=== PATIENT | male | born 1995 | race African-American/Black ===

== ENCOUNTER 2021-02-22 07:26 | Inpatient (IN) | payer MEDICAID ==
[~2021-02-22] VITALS: Ht 172.7 cm; Wt 58.5 kg
[2021-02-22 10:02] LABS: COVID AG,FIA SOURCE NASOPHARYNGEAL
[2021-02-22] MEDS ORDERED: HALOPERIDOL 5 MG TABLET PO ONE (10:15)
[2021-02-22] MEDS ORDERED: LORazepam 2 MG/ML VIAL IM ONE (10:15)
[2021-02-22] MEDS ORDERED: LORazepam 2 MG TABLET PO ONE (10:15)
[2021-02-22] MEDS ORDERED: HALOPERIDOL LACTATE 5 MG/ML VIAL IM ONE (10:15)
[2021-02-22] MEDS ORDERED: INFLUENZA VIRUS VACCINE QVS 2021-22 (6MO+)/PF 60 MCG/0.5 ML SYRINGE IM. ONE (12:45)
[2021-02-22 13:16] VITALS: BP 129/83
[2021-02-22] MEDS: RisperiDONE 1 MG TABLET PO SCH (17:00)
[2021-02-23 08:00] VITALS: BP 121/83
[2021-02-23] MEDS ORDERED: ONDANSETRON HCL 4 MG TABLET PO PRN (08:00)
[2021-02-23] MEDS ORDERED: LOPERAMIDE HCL 2 MG CAPSULE PO PRN (08:00)
[2021-02-23] MEDS ORDERED: PETROLATUM,WHITE 28 GM JELLY TP PRN (08:00)
[2021-02-23] MEDS ORDERED: ALBUTEROL SULFATE HFA 90 MCG/PUFF 8 GM INHALER IH PRN (08:00)
[2021-02-23] MEDS ORDERED: OMEPRAZOLE 20 MG CAPSULE PO PRN (08:00)
[2021-02-23] MEDS ORDERED: BENZOCAINE/MENTHOL LOZENGE PO PRN (08:00)
[2021-02-23] MEDS ORDERED: MAG HYDROX/AL HYDROX/SIMETH ES 30 ML SUSPENSION UDCUP PO PRN (08:00)
[2021-02-23] MEDS ORDERED: BACITRACIN 28 GM OINTMENT TP PRN (08:00)
[2021-02-23] MEDS ORDERED: MAGNESIUM HYDROXIDE SUSPENSION 30 ML UDCUP PO PRN (08:00)
[2021-02-23] MEDS ORDERED: IBUPROFEN 600 MG TABLET PO PRN (08:00)
[2021-02-23] MEDS ORDERED: DOCUSATE SODIUM 100 MG CAPSULE PO PRN (08:00)
[2021-02-23] MEDS ORDERED: CloNIDine HCL 0.1 MG TABLET PO PRN (08:00)
[2021-02-23] MEDS ORDERED: ACETAMINOPHEN 325 MG TABLET PO PRN (08:00)
[2021-02-23] MEDS: RisperiDONE 1 MG TABLET PO SCH (08:14)
[2021-02-23] MEDS: LORazepam 2 MG TABLET PO PRN (08:47)
[2021-02-23] MEDS: HALOPERIDOL 5 MG TABLET PO PRN (08:48)
[2021-02-23] MEDS: RisperiDONE 3 MG TABLET PO SCH (16:39)
[2021-02-23 18:55] VITALS: BP 109/56
[2021-02-24 08:28] VITALS: BP 109/76
[2021-02-24] MEDS: RisperiDONE 3 MG TABLET PO SCH ×3 (09:00→17:00)
[2021-02-24] MEDS: HALOPERIDOL 5 MG TABLET PO PRN (16:59)
[2021-02-25 08:00] VITALS: BP 119/75
[2021-02-25] MEDS: RisperiDONE 3 MG TABLET PO SCH ×2 (08:02→08:36)
[2021-02-25] MEDS: THIAMINE 100 MG TABLET PO SCH (08:37)
[2021-02-25] MEDS: MULTIVITAMINS WITH MINERALS, THERAPEUTIC TABLET PO SCH (08:37)
[2021-02-26] MEDS: RisperiDONE 3 MG TABLET PO SCH ×2 (08:14→17:00)
[2021-02-26] MEDS: MULTIVITAMINS WITH MINERALS, THERAPEUTIC TABLET PO SCH (08:14)
[2021-02-26] MEDS: THIAMINE 100 MG TABLET PO SCH (08:14)
[2021-02-26 08:25] VITALS: BP 130/84
[2021-02-26] MEDS: ZOLPIDEM TARTRATE 10 MG TABLET PO PRN (21:18)
[2021-02-27] MEDS: RisperiDONE 3 MG TABLET PO SCH ×2 (08:10→16:25)
[2021-02-27] MEDS: THIAMINE 100 MG TABLET PO SCH (08:10)
[2021-02-27] MEDS: MULTIVITAMINS WITH MINERALS, THERAPEUTIC TABLET PO SCH (08:10)
[2021-02-27 08:29] VITALS: BP 112/76
[2021-02-27] MEDS: LORazepam 2 MG TABLET PO PRN (08:53)
[2021-02-27 16:23] VITALS: BP 109/70
[2021-02-27] MEDS: ZOLPIDEM TARTRATE 10 MG TABLET PO PRN (20:10)
[2021-02-28] MEDS: LORazepam 2 MG TABLET PO PRN (08:27)
[2021-02-28] MEDS: RisperiDONE 3 MG TABLET PO SCH ×2 (08:27→16:18)
[2021-02-28] MEDS: THIAMINE 100 MG TABLET PO SCH (08:27)
[2021-02-28] MEDS: MULTIVITAMINS WITH MINERALS, THERAPEUTIC TABLET PO SCH (08:27)
[2021-02-28 09:26] VITALS: BP 121/66
[2021-02-28 16:23] VITALS: BP 129/76
[2021-02-28] MEDS: ZOLPIDEM TARTRATE 10 MG TABLET PO PRN (20:16)
[2021-03-01 09:06] VITALS: BP 129/77
[2021-03-01] MEDS: THIAMINE 100 MG TABLET PO SCH (10:16)
[2021-03-01] MEDS: MULTIVITAMINS WITH MINERALS, THERAPEUTIC TABLET PO SCH (10:16)
[2021-03-01] MEDS: RisperiDONE 3 MG TABLET PO SCH ×2 (10:16→17:39)
[2021-03-02 07:57] LABS: COVID AG,FIA SOURCE NASAL SWAB
[2021-03-02 09:49] VITALS: BP 125/76
[2021-03-02 09:50] VITALS: BP 125/76
[2021-03-02] MEDS: THIAMINE 100 MG TABLET PO SCH (09:56)
[2021-03-02] MEDS: RisperiDONE 3 MG TABLET PO SCH ×2 (09:56→16:07)
[2021-03-02] MEDS: MULTIVITAMINS WITH MINERALS, THERAPEUTIC TABLET PO SCH (09:57)
[2021-03-02 16:00] VITALS: BP 120/72
[2021-03-02] MEDS: HALOPERIDOL 5 MG TABLET PO PRN (16:07)
[2021-03-03] MEDS: THIAMINE 100 MG TABLET PO SCH (08:00)
[2021-03-03] MEDS: MULTIVITAMINS WITH MINERALS, THERAPEUTIC TABLET PO SCH (08:00)
[2021-03-03] MEDS: RisperiDONE 3 MG TABLET PO SCH (08:00)
[2021-03-03 08:41] VITALS: BP 131/83
[2021-03-03] MEDS ORDERED: RISP3TAB44 PO (10:36)
== END 2021-03-03 13:15 | disposition home or self-care (01) | DRG 885 ==
LOC: EMS 07:29 → 3EC 11:29
PROVIDERS: ADMIT Psychiatry & Neurology Psychiatry; ATTEND Psychiatry & Neurology Psychiatry
DX: F20.9 Schizophrenia, unspecified (principal); F31.9 Bipolar disorder, unspecified; F41.9 Anxiety disorder, unspecified; G47.00 Insomnia, unspecified; K59.00 Constipation, unspecified; Z53.20 Procedure and treatment not carried out because of patient's decision for unspecified reasons; Z20.822 Contact with and (suspected) exposure to COVID-19; F17.200 Nicotine dependence, unspecified, uncomplicated; Z71.6 Tobacco abuse counseling; Z28.21 Immunization not carried out because of patient refusal; Z72.89 Other problems related to lifestyle
CPT/HCPCS: 99285

== ENCOUNTER 2021-03-04 18:21 | Emergency (ER) | payer MEDICAID ==
[~2021-03-04] VITALS: Ht 180.3 cm; Wt 59.1 kg
[~2021-03-04 18:21] MED LIST: RISP3TAB44 PO
[2021-03-04 19:09] LABS: BASOPHILS % (AUTO) 0.2 % (0.0-2.0); EOSINOPHILS % (AUTO) 0.6 % (1.0-6.0); HEMATOCRIT 34.4 % (41-53); HEMOGLOBIN 11.3 g/dL (13.5-17.5); LYMPHOCYTES # (AUTO) 1.4 K/uL (1.0-4.8); LYMPHOCYTES % (AUTO) 11.3 % (22.0-44.0); MEAN CORPUSCULAR HEMOGLOBIN 28.8 pg (26.0-34.0); MEAN CORPUSCULAR HGB CONC 32.9 G/dL (31.0-37.0); MEAN CORPUSCULAR VOLUME 88 fL (80-100); MONOCYTES # (AUTO) 1.2 K/uL (0.1-1.0); MONOCYTES % (AUTO) 9.1 % (2.0-9.0); NEUTROPHILS % (AUTO) 78.8 % (40.0-70.0); PLATELET COUNT (AUTO) 337 K/uL (150-450); RED BLOOD CELL COUNT(AUTO) 3.93 MIL/uL (4.50-5.90); RED CELL DISTRIBUTION WIDTH 14.5 % (11.5-14.5)
[2021-03-04 19:17] LABS: ANION GAP 4 mmol/L (8-16); CALCIUM, TOTAL 8.7 mg/dL (8.8-10.5); CARBON DIOXIDE 31 mmol/L (22-29); CHLORIDE 106 mmol/L (98-107); CREATININE 0.69 mg/dL (0.60-1.30); GLOMERULAR FILTR. RATE CALC > 60 mL/min (>60); GLUCOSE,RANDOM 82 mg/dL (70-110); POTASSIUM 4.1 mmol/L (3.5-5.1); SODIUM SERUM 141 mmol/L (136-145); UREA NITROGEN, BLOOD 13 mg/dL (7-18)
[2021-03-04 19:22] LABS: ALANINE AMINOTRANSFERASE 29 U/L (12-78); ALBUMIN 3.6 g/dL (3.4-5.0); ALKALINE PHOSPHATASE 56 U/L (46-116); ASPARTATE AMINOTRANSFERASE 13 U/L (15-37); BILIRUBIN,TOTAL 0.2 mg/dL (0.1-1.0); LIPASE 83 U/L (73-393); TOTAL PROTEIN, SERUM 6.7 g/dL (6.4-8.2)
[2021-03-04 20:32] LABS: APPEARANCE,URINE CLEAR (CLEAR); BILIRUBIN,URINE NEGATIVE (NEGATIVE); GLUCOSE, URINE (UA) NEGATIVE (NEGATIVE); KETONES,URINE NEGATIVE (NEGATIVE); LEUKOCYTE ESTERASE ,URINE SMALL (NEGATIVE); NITRATE,URINE NEGATIVE (NEGATIVE); OCCULT BLOOD,URINE NEGATIVE (NEGATIVE); PROTEIN,URINE NEGATIVE (NEGATIVE); UROBILINOGEN,URINE 0.2 mg/dL (<=1.0)
[2021-03-04 21:01] LABS: BACTERIA,URINE Many /HPF (None Seen); RBC,URINE 0-2 /HPF (0-2); WBC,URINE 26-50 /HPF (0-5)
[2021-03-04] MEDS ORDERED: MetroNIDAZOLE 250 MG TABLET PO ONE (21:15)
[2021-03-04] MEDS ORDERED: CEPHALEXIN MONOHYDRATE 500 MG CAPSULE PO ONE (21:15)
[2021-03-04 22:17] LABS: AMPHET/METH SCREEN,URINE NEGATIVE (NEGATIVE); BARBITURATE SCREEN, URINE NEGATIVE (NEGATIVE); BENZODIAZEPINES SCREEN,URINE NEGATIVE (NEGATIVE); CANNABINOID SCREEN,URINE POSITIVE (NEGATIVE); COCAINE SCREEN,URINE NEGATIVE (NEGATIVE); METHADONE SCREEN, URINE NEGATIVE (NEGATIVE); OPIATE SCREEN,URINE NEGATIVE (NEGATIVE); PHENCYCLIDINE SCREEN,URINE NEGATIVE (NEGATIVE)
[2021-03-04 22:21] LABS: COVID AG,FIA SOURCE NASOPHARYNGEAL
[2021-03-05 11:30] VITALS: BP 118/72
== END 2021-03-05 12:10 | disposition home or self-care (01) ==
LOC: EMS 18:26
DX: N39.0 Urinary tract infection, site not specified (principal); F12.90 Cannabis use, unspecified, uncomplicated; F17.210 Nicotine dependence, cigarettes, uncomplicated; F31.9 Bipolar disorder, unspecified; Z20.822 Contact with and (suspected) exposure to COVID-19
CPT/HCPCS: 36415; 80053; 80307; 81001; 83690; 85025; 87077; 87086; 87186; 87426; 99285; G0480

== ENCOUNTER 2021-03-05 18:00 | Inpatient (IN) | payer MEDICAID ==
[~2021-03-05] VITALS: Ht 172.7 cm; Wt 59.8 kg
[2021-03-05 18:38] LABS: BASOPHILS % (AUTO) 0.3 % (0.0-2.0); EOSINOPHILS % (AUTO) 0.9 % (1.0-6.0); HEMATOCRIT 35.6 % (41-53); HEMOGLOBIN 11.5 g/dL (13.5-17.5); LYMPHOCYTES # (AUTO) 2.2 K/uL (1.0-4.8); MEAN CORPUSCULAR HEMOGLOBIN 28.6 pg (26.0-34.0); MEAN CORPUSCULAR HGB CONC 32.4 G/dL (31.0-37.0); MEAN CORPUSCULAR VOLUME 88 fL (80-100); MONOCYTES # (AUTO) 0.9 K/uL (0.1-1.0); MONOCYTES % (AUTO) 7.8 % (2.0-9.0); NEUTROPHILS # (AUTO) 8.9 K/uL (1.8-7.7); PLATELET COUNT (AUTO) 356 K/uL (150-450); RED BLOOD CELL COUNT(AUTO) 4.03 MIL/uL (4.50-5.90); RED CELL DISTRIBUTION WIDTH 14.5 % (11.5-14.5)
[2021-03-05 18:39] LABS: COVID AG,FIA SOURCE NASOPHARYNGEAL
[2021-03-05 18:57] LABS: ANION GAP 6 mmol/L (8-16); CALCIUM, TOTAL 9.1 mg/dL (8.8-10.5); CARBON DIOXIDE 33 mmol/L (22-29); CHLORIDE 105 mmol/L (98-107); GLOMERULAR FILTR. RATE CALC > 60 mL/min (>60); GLUCOSE,RANDOM 100 mg/dL (70-110); SODIUM SERUM 144 mmol/L (136-145); UREA NITROGEN, BLOOD 15 mg/dL (7-18)
[2021-03-05 19:12] LABS: ALANINE AMINOTRANSFERASE 36 U/L (12-78); ALBUMIN 3.9 g/dL (3.4-5.0); ALKALINE PHOSPHATASE 60 U/L (46-116); ASPARTATE AMINOTRANSFERASE 18 U/L (15-37); BILIRUBIN,TOTAL 0.1 mg/dL (0.1-1.0)
[2021-03-06] MEDS ORDERED: INFLUENZA VIRUS VACCINE QVS 2021-22 (6MO+)/PF 60 MCG/0.5 ML SYRINGE IM. ONE (01:15)
[2021-03-06 03:32] VITALS: BP 115/65
[2021-03-06 08:23] LABS: CHOL/HDL RATIO 1.9 (4.2-7.3)
[2021-03-06] MEDS ORDERED: ONDANSETRON HCL 4 MG TABLET PO PRN (08:45)
[2021-03-06] MEDS ORDERED: ACETAMINOPHEN 325 MG TABLET PO PRN (08:45)
[2021-03-06] MEDS ORDERED: CloNIDine HCL 0.1 MG TABLET PO PRN (08:45)
[2021-03-06] MEDS ORDERED: LOPERAMIDE HCL 2 MG CAPSULE PO PRN (08:45)
[2021-03-06] MEDS ORDERED: OMEPRAZOLE 20 MG CAPSULE PO PRN (08:45)
[2021-03-06] MEDS ORDERED: MAG HYDROX/AL HYDROX/SIMETH ES 30 ML SUSPENSION UDCUP PO PRN (08:45)
[2021-03-06] MEDS ORDERED: DOCUSATE SODIUM 100 MG CAPSULE PO PRN (08:45)
[2021-03-06] MEDS ORDERED: MAGNESIUM HYDROXIDE SUSPENSION 30 ML UDCUP PO PRN (08:45)
[2021-03-06] MEDS ORDERED: BENZOCAINE/MENTHOL LOZENGE PO PRN (08:45)
[2021-03-06] MEDS ORDERED: ALBUTEROL SULFATE HFA 90 MCG/PUFF 8 GM INHALER IH PRN (08:45)
[2021-03-06] MEDS ORDERED: PETROLATUM,WHITE 28 GM JELLY TP PRN (08:45)
[2021-03-06] MEDS ORDERED: BACITRACIN 28 GM OINTMENT TP PRN (08:45)
[2021-03-06] MEDS ORDERED: IBUPROFEN 600 MG TABLET PO PRN (08:45)
[2021-03-06 08:54] VITALS: BP 118/70
[2021-03-06 16:09] VITALS: BP 133/79
[2021-03-06] MEDS: RisperiDONE 3 MG TABLET PO SCH ×3 (16:57→17:16)
[2021-03-06] MEDS: LORazepam 2 MG TABLET PO PRN (17:48)
[2021-03-06] MEDS: HALOPERIDOL 5 MG TABLET PO PRN (17:48)
[2021-03-07 00:29] VITALS: BP 106/60
[2021-03-07 08:15] VITALS: BP 121/73
[2021-03-07 08:33] LABS: BASOPHILS % (AUTO) 0.3 % (0.0-2.0); EOSINOPHILS % (AUTO) 0.8 % (1.0-6.0); HEMATOCRIT 36.2 % (41-53); HEMOGLOBIN 11.9 g/dL (13.5-17.5); LYMPHOCYTES # (AUTO) 2.1 K/uL (1.0-4.8); LYMPHOCYTES % (AUTO) 14.3 % (22.0-44.0); MEAN CORPUSCULAR VOLUME 88 fL (80-100); MONOCYTES # (AUTO) 1.3 K/uL (0.1-1.0); MONOCYTES % (AUTO) 8.7 % (2.0-9.0); NEUTROPHILS # (AUTO) 10.9 K/uL (1.8-7.7); NEUTROPHILS % (AUTO) 75.9 % (40.0-70.0); PLATELET COUNT (AUTO) 370 K/uL (150-450); RED BLOOD CELL COUNT(AUTO) 4.11 MIL/uL (4.50-5.90); RED CELL DISTRIBUTION WIDTH 14.8 % (11.5-14.5)
[2021-03-07 08:57] LABS: ALANINE AMINOTRANSFERASE 48 U/L (12-78); ALBUMIN 3.8 g/dL (3.4-5.0); ALKALINE PHOSPHATASE 55 U/L (46-116); ANION GAP 5 mmol/L (8-16); ASPARTATE AMINOTRANSFERASE 23 U/L (15-37); BILIRUBIN,TOTAL 0.3 mg/dL (0.1-1.0); CALCIUM, TOTAL 9.3 mg/dL (8.8-10.5); CARBON DIOXIDE 29 mmol/L (22-29); CHLORIDE 104 mmol/L (98-107); CREATININE 0.76 mg/dL (0.60-1.30); GLOMERULAR FILTR. RATE CALC > 60 mL/min (>60); GLUCOSE,RANDOM 105 mg/dL (70-110); POTASSIUM 3.9 mmol/L (3.5-5.1); SODIUM SERUM 138 mmol/L (136-145); TOTAL PROTEIN, SERUM 7.1 g/dL (6.4-8.2); UREA NITROGEN, BLOOD 14 mg/dL (7-18)
[2021-03-07 11:20] LABS: AMPHET/METH SCREEN,URINE NEGATIVE (NEGATIVE); BARBITURATE SCREEN, URINE NEGATIVE (NEGATIVE); BENZODIAZEPINES SCREEN,URINE NEGATIVE (NEGATIVE); CANNABINOID SCREEN,URINE POSITIVE (NEGATIVE); COCAINE SCREEN,URINE NEGATIVE (NEGATIVE); METHADONE SCREEN, URINE NEGATIVE (NEGATIVE); OPIATE SCREEN,URINE NEGATIVE (NEGATIVE)
[2021-03-07 11:23] LABS: PHENCYCLIDINE SCREEN,URINE NEGATIVE (NEGATIVE)
[2021-03-07] MEDS: LORazepam 2 MG TABLET PO PRN (15:35)
[2021-03-07] MEDS: HALOPERIDOL 5 MG TABLET PO PRN (15:35)
[2021-03-07 16:07] VITALS: BP 140/84
[2021-03-07] MEDS: RisperiDONE 3 MG TABLET PO SCH (16:16)
[2021-03-08] MEDS: LORazepam 2 MG TABLET PO PRN ×2 (00:13→09:22)
[2021-03-08] MEDS: ZOLPIDEM TARTRATE 10 MG TABLET PO PRN (00:13)
[2021-03-08 04:12] VITALS: BP 130/76
[2021-03-08 08:20] VITALS: BP 121/69
[2021-03-08] MEDS: RisperiDONE 3 MG TABLET PO SCH ×2 (09:00→16:20)
[2021-03-08] MEDS: HALOPERIDOL 5 MG TABLET PO PRN (09:22)
[2021-03-08 16:08] VITALS: BP 128/72
[2021-03-09 00:21] VITALS: BP 121/68
[2021-03-09] MEDS: ZOLPIDEM TARTRATE 10 MG TABLET PO PRN (00:47)
[2021-03-09] MEDS: LORazepam 2 MG TABLET PO PRN ×2 (00:47→08:35)
[2021-03-09 08:15] VITALS: BP 131/81
[2021-03-09] MEDS: HALOPERIDOL 5 MG TABLET PO PRN (08:35)
[2021-03-09] MEDS: RisperiDONE 3 MG TABLET PO SCH ×2 (08:35→16:47)
[2021-03-09 16:09] VITALS: BP 115/78
[2021-03-10 01:27] VITALS: BP 123/78
[2021-03-10] MEDS: RisperiDONE 3 MG TABLET PO SCH ×2 (08:21→16:49)
[2021-03-10] MEDS: HALOPERIDOL 5 MG TABLET PO PRN ×2 (08:36→16:49)
[2021-03-10] MEDS: LORazepam 2 MG TABLET PO PRN ×2 (08:36→16:49)
[2021-03-10 08:37] VITALS: BP 136/88
[2021-03-10 16:06] VITALS: BP 114/70
[2021-03-11 01:35] VITALS: BP 111/72
[2021-03-11] MEDS: HALOPERIDOL 5 MG TABLET PO PRN (05:13)
[2021-03-11] MEDS: LORazepam 2 MG TABLET PO PRN ×2 (05:13→16:28)
[2021-03-11] MEDS: RisperiDONE 3 MG TABLET PO SCH ×2 (09:00→16:28)
[2021-03-11 14:36] VITALS: BP 113/74
[2021-03-11 17:24] VITALS: BP 125/83
[2021-03-11] MEDS: ZOLPIDEM TARTRATE 10 MG TABLET PO PRN (20:11)
[2021-03-12 04:03] VITALS: BP 122/70
[2021-03-12 08:14] VITALS: BP 112/69
[2021-03-12] MEDS: RisperiDONE 3 MG TABLET PO SCH ×2 (09:14→17:44)
[2021-03-12 16:10] VITALS: BP 121/81
[2021-03-13 05:23] VITALS: BP 114/68
[2021-03-13] MEDS: RisperiDONE 3 MG TABLET PO SCH ×2 (08:17→16:03)
[2021-03-13 09:31] VITALS: BP 110/64
[2021-03-13 10:09] LABS: GLUCOMETER DEV NAME(LOC) POC.BV
[2021-03-13 16:09] VITALS: BP 122/77
[2021-03-13] MEDS: LORazepam 2 MG TABLET PO PRN ×2 (16:12→20:13)
[2021-03-13] MEDS: ZOLPIDEM TARTRATE 10 MG TABLET PO PRN (20:37)
[2021-03-14 08:29] VITALS: BP 140/87
[2021-03-14] MEDS: RisperiDONE 3 MG TABLET PO SCH ×2 (08:35→16:55)
[2021-03-14] MEDS: HALOPERIDOL 5 MG TABLET PO PRN (09:02)
[2021-03-14 16:12] VITALS: BP 122/72
[2021-03-15 05:14] VITALS: BP 131/83
[2021-03-15] MEDS: RisperiDONE 3 MG TABLET PO SCH ×2 (09:09→17:09)
[2021-03-15 09:40] VITALS: BP 116/72
[2021-03-15 16:14] VITALS: BP 120/70
[2021-03-16] MEDS: RisperiDONE 3 MG TABLET PO SCH ×2 (08:08→16:36)
[2021-03-16 08:51] VITALS: BP 119/72
[2021-03-16 16:18] VITALS: BP 125/72
[2021-03-17] MEDS: RisperiDONE 3 MG TABLET PO SCH ×2 (08:38→17:08)
[2021-03-17 08:53] VITALS: BP 116/70
[2021-03-17 16:14] VITALS: BP 132/79
[2021-03-18 00:15] VITALS: BP 119/73
[2021-03-18] MEDS: RisperiDONE 3 MG TABLET PO SCH ×2 (08:13→16:17)
[2021-03-18 09:55] VITALS: BP 139/83
[2021-03-18 16:09] VITALS: BP 128/60
[2021-03-18] MEDS ORDERED: TUBERCULIN, PURIFIED PROTEIN DERIVATIVE 5 TU/0.1 ML SYRINGE ID ONE (16:15)
[2021-03-19 05:41] VITALS: BP 114/71
[2021-03-19 07:09] LABS: BAND NEUTROPHILS % (MANUAL) 0 % (0-5)
[2021-03-19 07:14] LABS: HEMATOCRIT 36.2 % (41-53); HEMOGLOBIN 12.3 g/dL (13.5-17.5); MEAN CORPUSCULAR HEMOGLOBIN 29.5 pg (26.0-34.0); MEAN CORPUSCULAR HGB CONC 33.9 G/dL (31.0-37.0); MEAN CORPUSCULAR VOLUME 87 fL (80-100); PLATELET COUNT (AUTO) 326 K/uL (150-450); RED BLOOD CELL COUNT(AUTO) 4.17 MIL/uL (4.50-5.90); RED CELL DISTRIBUTION WIDTH 14.6 % (11.5-14.5)
[2021-03-19 07:23] LABS: ANION GAP 7 mmol/L (8-16); CARBON DIOXIDE 29 mmol/L (22-29); CHLORIDE 106 mmol/L (98-107); CREATININE 0.91 mg/dL (0.60-1.30); GLOMERULAR FILTR. RATE CALC > 60 mL/min (>60); GLUCOSE,RANDOM 127 mg/dL (70-110); PHOSPHORUS 3.3 mg/dL (2.5-4.9); SODIUM SERUM 142 mmol/L (136-145); UREA NITROGEN, BLOOD 10 mg/dL (7-18)
[2021-03-19 08:32] VITALS: BP 124/73
[2021-03-19 08:32] LABS: LYMPHOCYTES % (MANUAL) 19 % (22-44); MONOCYTES % (MANUAL) 2 % (2-9); SEGMENTED NEUTROPHILS % 79 % (40-70)
[2021-03-19] MEDS: RisperiDONE 3 MG TABLET PO SCH ×2 (09:10→17:00)
[2021-03-19 16:10] VITALS: BP 128/83
[2021-03-19] MEDS: MAGNESIUM OXIDE 400 MG TABLET PO SCH (17:00)
[2021-03-20 04:17] VITALS: BP 129/76
[2021-03-20] MEDS: RisperiDONE 3 MG TABLET PO SCH ×2 (08:06→16:54)
[2021-03-20] MEDS: MAGNESIUM OXIDE 400 MG TABLET PO SCH ×2 (08:11→16:54)
[2021-03-20 08:41] VITALS: BP 142/85
[2021-03-20 16:10] VITALS: BP 127/78
[2021-03-21 06:08] VITALS: BP 114/72
[2021-03-21] MEDS: RisperiDONE 3 MG TABLET PO SCH ×2 (08:12→17:03)
[2021-03-21] MEDS: MAGNESIUM OXIDE 400 MG TABLET PO SCH ×2 (08:12→17:03)
[2021-03-21 08:15] VITALS: BP 144/81
[2021-03-21 16:15] VITALS: BP 128/60
[2021-03-22 04:18] VITALS: BP_SYST 123; BP_SYST 78; BP_DIAS 78
[2021-03-22 08:00] VITALS: BP 120/73
[2021-03-22] MEDS: MAGNESIUM OXIDE 400 MG TABLET PO SCH (08:02)
[2021-03-22] MEDS: RisperiDONE 3 MG TABLET PO SCH (08:02)
== END 2021-03-22 13:00 | disposition home or self-care (01) | DRG 750 ==
LOC: EMS 18:04 → B3A 22:00
PROVIDERS: ADMIT Psychiatry & Neurology Psychiatry; ATTEND Psychiatry & Neurology Psychiatry
DX: F20.0 Paranoid schizophrenia (principal); R45.851 Suicidal ideations; F31.9 Bipolar disorder, unspecified; F12.90 Cannabis use, unspecified, uncomplicated; Z20.822 Contact with and (suspected) exposure to COVID-19; G47.00 Insomnia, unspecified; K59.00 Constipation, unspecified; F17.210 Nicotine dependence, cigarettes, uncomplicated; F41.9 Anxiety disorder, unspecified; Z72.89 Other problems related to lifestyle; Z71.6 Tobacco abuse counseling; Z28.21 Immunization not carried out because of patient refusal
CPT/HCPCS: 80048; 80053; 80061; 83735; 84100; 85007; 85025; 85027; 87081; 99285; G0480